=== PATIENT | female | born 1955 | race Caucasian/White ===

== ENCOUNTER 2024-05-14 09:06 | Outpatient (CLI) | payer OTHER ==
[~2024-05-14] VITALS: Ht 157.5 cm; Wt 54.4 kg
[2024-05-14 09:36] VITALS: PULSE 75; RESP 14; O2SAT 97
[2024-05-14 09:50] VITALS: PULSE 73; RESP 16
[2024-05-14] MEDS: albuterol 2.5 MG/3 ML nebule NEB ONE (09:54)
== END 2024-05-14 23:59 | disposition home or self-care (01) ==
LOC: RT 09:06
PROVIDERS: ATTEND Chiropractor
DX: J42 Unspecified chronic bronchitis (principal)
CPT/HCPCS: 94060; 94760